=== PATIENT | female | born 1960 | race Native Hawaiian/Other Pacific Islander ===

== ENCOUNTER 2019-07-06 08:38 | Outpatient (CLI) | payer OTHER | END 2019-07-06 23:35 | disposition home or self-care (01) | LOC: MAMMO 08:38 | DX: Z12.31 Encounter for screening mammogram for malignant neoplasm of breast (principal); Z13.820 Encounter for screening for osteoporosis; N95.1 Menopausal and female climacteric states; N95.8 Other specified menopausal and perimenopausal disorders ==